=== PATIENT | male | born 1995 | race Caucasian/White ===

== ENCOUNTER 2019-11-01 13:06 | Emergency (ER) | payer OTHER ==
[~2019-11-01] VITALS: Ht 198.1 cm; Wt 83.9 kg
[2019-11-01] MEDS ORDERED: CIPROFLOXIN HC2.5 M1 OPHTHALMIC (13:44)
[2019-11-01 13:55] VITALS: BP 113/60
== END 2019-11-01 13:55 | disposition home or self-care (01) ==
LOC: M.ERS 13:06
DX: H10.9 Unspecified conjunctivitis (principal); F17.200 Nicotine dependence, unspecified, uncomplicated